=== PATIENT | female | born 1970 ===

== ENCOUNTER 2021-06-14 09:45 | Day surgery (SDC) | payer OTHER ==
[~2021-06-14 09:45] MED LIST: ATACAND32 MG PO; NIFEDIPINE20 MG PO
[2021-06-14] MEDS ORDERED: ULTRACET PO (15:13)
[2021-06-14] MEDS ORDERED: DICLOFENAC SODI50 MG PO (15:14)
[2021-06-14] MEDS ORDERED: COLACE100 MG PO (15:14)
== END 2021-06-14 17:20 | disposition home or self-care (01) ==
LOC: CIR.AMB 09:45
PROVIDERS: ATTEND Obstetrics & Gynecology
DX: Z30.09 Encounter for other general counseling and advice on contraception (principal); I10 Essential (primary) hypertension; Z86.16 Personal history of COVID-19; Z20.822 Contact with and (suspected) exposure to COVID-19